=== PATIENT | female | born 1975 | race Caucasian/White ===

== ENCOUNTER 2022-04-06 15:28 | Inpatient (IN) | payer MEDICARE, MEDICAID ==
[2022-04-06] MEDS ORDERED: Metoclopramide HCl 10 MG/2 ML VIAL ONE (15:59)
[2022-04-06] MEDS ORDERED: diphenhydrAMINE 50 MG/ML VIAL ONE (15:59)
[2022-04-06] MEDS ORDERED: methylPREDNISolone Sod Succ/PF 125 MG/2 ML VIAL ONE (16:03)
[2022-04-06 16:09] LABS: #Basophils 0.1 10x3/uL (0.0-0.2); #Eosinphils 0.1 10x3/uL (0.0-0.5); #Monocytes 0.7 10x3/uL (0.0-1.1); #Neutrophils 2.6 10x3/uL (1.5-8.4); %Basophils 1.3 % (0.0-2.0); %Eosinophils 1.5 % (0.0-6.0); %Lymphocytes 34.1 % (18.0-47.0); %Monocytes 13.7 % (0.0-10.0); %Neutrophils 49.2 % (40.0-75.0); Hemoglobin 11.9 g/dL (12.0-15.5); Mean Corpuscular HGB CONC 34.2 g/dL (32.0-36.0); Mean Corpuscular Hemoglobin 33.6 pg (27.0-33.0); Mean Corpuscular Volume 98.3 fl (81.6-98.3); Mean Platelet Volume 9.2 fl (7.4-10.4); Platelet Count 348 10x3/uL (150-450); RBC Distribution Width 12.1 % (11.5-14.5); Red Blood Cell (RBC) Count 3.54 10x6/uL (3.90-5.03); White Blood Cell (WBC) Count 5.3 10x3/uL (3.5-10.5)
[2022-04-06 16:20] LABS: INR-International Normal Ratio 1.1; Prothrombin Time 12.2 sec (9.5-12.1)
[2022-04-06 16:22] LABS: ALT (SGPT) 10 U/L (8-55); AST (SGOT) 11 U/L (5-34); Albumin 3.4 g/dL (3.5-5.0); Alkaline Phosphatase 53 U/L (40-110); Anion Gap 12 mmol/L (10-20); BUN (Urea Nitrogen) 20 mg/dL (7.0-18.7); Bilirubin, Total 0.1 mg/dL (0.2-1.2); Calc. Creatinine Clearance 0 mL/min (70-130); Calcium 8.1 mg/dL (7.8-10.44); Carbon Dioxide 23 mmol/L (22-29); Chloride 107 mmol/L (98-107); Estimated GFR 94; Globulin 1.9 g/dL (2.4-3.5); Glucose 99 mg/dL (70-105); Protein, Total 5.3 g/dL (6.0-8.3); Sodium 138 mmol/L (136-145)
[2022-04-06] MEDS ORDERED: Magnesium 2 GM/50 ML BAG (IN WATER) ONE (17:53)
[2022-04-06] MEDS ORDERED: Acetaminophen 325 MG TAB PO PRN (18:13)
[2022-04-06] MEDS ORDERED: Senokot S 8.6-50 MG TAB PO PRN (18:13)
[2022-04-06] MEDS ORDERED: Ondansetron PF 4 MG/2 ML Vial IVP PRN (18:13)
[2022-04-06] MEDS ORDERED: HYDROcodone/Acetaminophen 5/325 mg Tablet PO PRN (18:13)
[2022-04-06] MEDS ORDERED: Bisacodyl 5 MG TAB PO PRN (18:13)
[2022-04-06] MEDS ORDERED: Valproate Sodium 500 MG in Sodium Chloride 0.9% 100 ML IVPB SCH (18:15)
[2022-04-06 18:49] VITALS: BMI 24.2
[2022-04-06] MEDS ORDERED: Metoclopramide HCl 10 MG/2 ML VIAL IVP SCH (19:00)
[2022-04-06] MEDS ORDERED: Morphine 4 MG/ML VIAL SLOW IVP SCH (19:00)
[2022-04-06] MEDS ORDERED: diphenhydrAMINE 50 MG/ML VIAL IVP SCH (19:00)
[2022-04-06] MEDS: Famotidine/PF 20 mg/2ml Vial SLOW IVP SCH (20:18)
[2022-04-07 00:41] LABS: SARS-CoV-2 NAA Rapid Test Not Detected (NotDetected)
[2022-04-07] MEDS ORDERED: predniSONE 10 MG TAB PO PRN (07:42)
[2022-04-07] MEDS ORDERED: Levothyroxine Sodium 112 MCG TAB PO SCH (08:00)
[2022-04-07] MEDS: Morphine 4 MG/ML VIAL SLOW IVP PRN (08:23)
[2022-04-07] MEDS ORDERED: Rivaroxaban 10 MG TAB PO SCH (09:00)
[2022-04-07] MEDS ORDERED: Enoxaparin Sodium 40 MG/0.4 ML SYRINGE SC SCH (09:00)
[2022-04-07] MEDS: FLUoxetine HCl 20 MG CAP PO SCH (09:19)
[2022-04-07] MEDS: ALPRAZolam 0.5 MG TAB PO SCH ×3 (09:19→20:10)
[2022-04-07] MEDS: Lisinopril 20 MG TAB PO SCH (09:19)
[2022-04-07] MEDS: Cholecalciferol 1,000 UNITS (25 MCG) TAB PO SCH (09:19)
[2022-04-07] MEDS: Methocarbamol 500 MG TAB PO SCH ×3 (09:20→20:08)
[2022-04-07] MEDS: busPIRone HCl 5 MG TAB PO SCH ×2 (09:21→20:10)
[2022-04-07] MEDS: Famotidine/PF 20 mg/2ml Vial SLOW IVP SCH ×2 (09:23→20:10)
[2022-04-07] MEDS: Carvedilol 25 MG TAB PO SCH ×2 (09:23→20:10)
[2022-04-07] MEDS ORDERED: Magnevist 469MG/ML 20 ML VIAL ONE (10:10)
[2022-04-07] MEDS ORDERED: Metoclopramide HCl 10 MG TAB PO SCH (12:30)
[2022-04-07] MEDS ORDERED: Morphine 4 MG/ML VIAL SLOW IVP SCH (12:30)
[2022-04-07] MEDS ORDERED: methylPREDNISolone Sod Succ 40 MG VIAL IVP SCH (12:30)
[2022-04-07] MEDS ORDERED: diphenhydrAMINE 25 MG in Sodium Chloride 0.9% 50 ML IVPB SCH (13:00)
[2022-04-07] MEDS: Atorvastatin Calcium 40 MG TAB PO SCH (20:09)
[2022-04-07] MEDS: Mirtazapine 15 MG TAB PO SCH (20:10)
[2022-04-07] MEDS: diphenhydrAMINE 50 MG/ML VIAL IVP SCH (20:11)
[2022-04-07] MEDS: Prochlorperazine Edisylate 10 MG, Admixture Fee 1 EACH in Sodium Chloride 0.9% 50 ML IVPB SCH (20:12)
[2022-04-07] MEDS: Progesterone,Micronized 100 MG CAP PO SCH (20:46)
[2022-04-07] MEDS ORDERED: Enoxaparin Sodium 60 MG/0.6 ML SYRINGE SC SCH (21:00)
[2022-04-08] MEDS: Prochlorperazine Edisylate 10 MG, Admixture Fee 1 EACH in Sodium Chloride 0.9% 50 ML IVPB SCH ×3 (02:34→15:19)
[2022-04-08] MEDS: diphenhydrAMINE 50 MG/ML VIAL IVP SCH ×3 (02:34→15:18)
[2022-04-08] MEDS: Levothyroxine Sodium 112 MCG TAB PO SCH (05:51)
[2022-04-08] MEDS: Lisinopril 20 MG TAB PO SCH (09:15)
[2022-04-08] MEDS: Methocarbamol 500 MG TAB PO SCH ×3 (09:16→20:46)
[2022-04-08] MEDS: Cholecalciferol 1,000 UNITS (25 MCG) TAB PO SCH (09:16)
[2022-04-08] MEDS: FLUoxetine HCl 20 MG CAP PO SCH (09:17)
[2022-04-08] MEDS: busPIRone HCl 5 MG TAB PO SCH ×2 (09:17→20:47)
[2022-04-08] MEDS: Carvedilol 25 MG TAB PO SCH ×2 (09:17→20:46)
[2022-04-08] MEDS: ALPRAZolam 0.5 MG TAB PO SCH ×3 (09:17→20:44)
[2022-04-08] MEDS: Rivaroxaban 10 MG TAB PO SCH (09:30)
[2022-04-08] MEDS: Famotidine/PF 20 mg/2ml Vial SLOW IVP SCH (09:42)
[2022-04-08] MEDS: Morphine 4 MG/ML VIAL SLOW IVP PRN ×3 (11:05→22:31)
[2022-04-08] MEDS: Mirtazapine 15 MG TAB PO SCH (20:44)
[2022-04-08] MEDS: Atorvastatin Calcium 40 MG TAB PO SCH (20:45)
[2022-04-08] MEDS: Progesterone,Micronized 100 MG CAP PO SCH (20:48)
[2022-04-09] MEDS: Levothyroxine Sodium 112 MCG TAB PO SCH (04:57)
[2022-04-09] MEDS: Morphine 4 MG/ML VIAL SLOW IVP PRN ×2 (04:57→08:34)
[2022-04-09] MEDS: FLUoxetine HCl 20 MG CAP PO SCH (08:33)
[2022-04-09] MEDS: Carvedilol 25 MG TAB PO SCH (08:33)
[2022-04-09] MEDS: busPIRone HCl 5 MG TAB PO SCH (08:34)
[2022-04-09] MEDS: Rivaroxaban 10 MG TAB PO SCH (08:34)
[2022-04-09] MEDS: Cholecalciferol 1,000 UNITS (25 MCG) TAB PO SCH (08:34)
[2022-04-09] MEDS: Lisinopril 20 MG TAB PO SCH (08:34)
[2022-04-09] MEDS: ALPRAZolam 0.5 MG TAB PO SCH (08:34)
[2022-04-09] MEDS: Methocarbamol 500 MG TAB PO SCH (08:35)
[2022-04-09 09:24] VITALS: BP 136/74; TEMP 98.6
== END 2022-04-09 10:45 | disposition home or self-care (01) | DRG 103 ==
LOC: CSHERS 15:28 → CSHTELE 18:41 → OBSVTOIN 04-08 09:14
PROVIDERS: ADMIT Family Medicine; ATTEND Family Medicine
DX: G43.919 Migraine, unspecified, intractable, without status migrainosus (principal); M06.9 Rheumatoid arthritis, unspecified; I10 Essential (primary) hypertension; E03.9 Hypothyroidism, unspecified; F32.A Depression, unspecified; F41.9 Anxiety disorder, unspecified; M34.9 Systemic sclerosis, unspecified; G56.03 Carpal tunnel syndrome, bilateral upper limbs; Z20.822 Contact with and (suspected) exposure to COVID-19; Z86.73 Personal history of transient ischemic attack (TIA), and cerebral infarction without residual deficits; Z79.899 Other long term (current) drug therapy; Z90.710 Acquired absence of both cervix and uterus; Z98.890 Other specified postprocedural states; Z87.891 Personal history of nicotine dependence
CPT/HCPCS: 36415; 70450; 70553; 80053; 85025; 85610; 85652; 85730; 86140; 96361; 96365; 96367; 96375; 96376; A9579; G0378; J0780; J1200; J2270; J2765; J2920; J2930; J3475; J3490; S0028; U0002

== ENCOUNTER 2023-11-20 13:07 | Emergency (ER) | payer MEDICAID, MEDICARE ==
[2023-11-20] MEDS ORDERED: methylPREDNISolone Sod Succ/PF 125 MG/2 ML VIAL ONE (14:52)
== END 2023-11-20 14:59 | disposition home or self-care (01) ==
LOC: CSHERS 13:07
DX: G35 Multiple sclerosis (principal); I10 Essential (primary) hypertension; Z86.73 Personal history of transient ischemic attack (TIA), and cerebral infarction without residual deficits; Z87.891 Personal history of nicotine dependence; Z79.899 Other long term (current) drug therapy
CPT/HCPCS: 70450; 96374; J2930

== ENCOUNTER 2024-04-19 14:17 | Outpatient (CLI) | payer BC, MEDICAID | END 2024-04-19 14:18 | disposition home or self-care (01) | LOC: CSHMRI 14:17 | PROVIDERS: ATTEND Family Medicine | DX: G35 Multiple sclerosis (principal); G56.93 Unspecified mononeuropathy of bilateral upper limbs; G57.93 Unspecified mononeuropathy of bilateral lower limbs; M47.812 Spondylosis without myelopathy or radiculopathy, cervical region; M47.816 Spondylosis without myelopathy or radiculopathy, lumbar region | CPT/HCPCS: 70551; 72141; 72148 ==

== ENCOUNTER 2024-08-13 11:09 | Emergency (ER) | payer OTHER ==
[2024-08-13 12:05] LABS: #Basophils 0.08 10x3/uL (0.0-0.2); #Eosinophils Less than 0.03 10x3/uL (0.0-0.5); #Monocytes 0.76 10x3/uL (0.0-1.1); #Neutrophils 4.62 10x3/uL (1.5-8.4); %Basophils 1.2 % (0.0-2.0); %Eosinophils 0.2 % (0.0-6.0); %Lymphocytes 14.5 % (18.0-47.0); %Monocytes 11.9 % (0.0-10.0); Hemoglobin 11.7 g/dL (12.0-15.5); Mean Corpuscular HGB CONC 32.5 g/dL (32.0-36.0); Mean Corpuscular Hemoglobin 29.4 pg (27.0-33.0); Mean Corpuscular Volume 90.5 fL (81.6-98.3); Mean Platelet Volume 10.9 fL (7.4-10.4); Platelet Count 278 10x3/uL (150-450); RBC Distribution Width 12.6 % (11.5-14.5); Red Blood Cell (RBC) Count 3.98 10x6/uL (3.90-5.03); White Blood Cell (WBC) Count 6.41 10x3/uL (3.5-10.5)
[2024-08-13 12:23] LABS: ALT (SGPT) 20 U/L (Less than 34); AST (SGOT) 21 U/L (11-34); Albumin 3.7 g/dL (3.1-4.5); Alkaline Phosphatase 51 U/L (40-110); Anion Gap 12 mmol/L (10-20); BUN (Urea Nitrogen) 16 mg/dL (9.8-20.1); Bilirubin, Total 0.2 mg/dL (0.3-1.2); Calc. Creatinine Clearance 0 mL/min (70-130); Calcium 8.7 mg/dL (7.8-10.44); Carbon Dioxide 22 mmol/L (22-29); Chloride 106 mmol/L (98-107); Estimated GFR 108; Globulin 2.6 g/dL (2.4-3.5); Glucose 104 mg/dL (70-105); Potassium 3.8 mmol/L (3.5-5.1); Protein, Total 6.3 g/dL (6.0-8.3); Sodium 136 mmol/L (136-145)
[2024-08-13 12:26] LABS: Troponin I Less than 0.010 ng/mL (< 0.028)
[2024-08-13] MEDS ORDERED: diphenhydrAMINE 50 MG/ML VIAL ONE (12:59)
[2024-08-13] MEDS ORDERED: Metoclopramide HCl 10 MG (2 mL) VIAL ONE (13:00)
[2024-08-13] MEDS ORDERED: Ketorolac Tromethamine 30 MG (1 mL) VIAL ONE (13:00)
== END 2024-08-13 13:54 | disposition home or self-care (01) ==
LOC: CSHERS 11:09
DX: G35 Multiple sclerosis (principal); I10 Essential (primary) hypertension; Z87.891 Personal history of nicotine dependence
CPT/HCPCS: 70450; 71045; 80053; 82962; 84484; 85025; J1200; J1885; J2765; 36415; 36416; 96374; 96375